=== PATIENT | female | born 1990 | race Two or more races ===

== ENCOUNTER 2020-09-26 08:16 | Inpatient (IN) | payer OTHER ==
[~2020-09-26] VITALS: Ht 162.6 cm; Wt 3.2 kg
[2020-09-26] MEDS ORDERED: PRENATAL TABLE1 EAC1 PO (09:09)
== END 2020-09-29 14:19 | disposition home or self-care (01) | DRG 788 ==
LOC: OB/GYN 08:16 → LDR 08:16 → O/R 08:16 → OB/GYN 13:56
PROVIDERS: ADMIT Specialist; ATTEND Specialist
PROC: 4A1HXFZ Monitoring of Products of Conception, Cardiac Rhythm, External Approach (ICD-10-PCS; 2020-09-26)
PROC: 10D00Z1 Extraction of Products of Conception, Low, Open Approach (ICD-10-PCS; principal; 2020-09-26 11:30)
DX: O65.5 Obstructed labor due to abnormality of maternal pelvic organs (principal); O34.211 Maternal care for low transverse scar from previous cesarean delivery; Z3A.39 39 weeks gestation of pregnancy; Z37.0 Single live birth